=== PATIENT | female | born 1945 | race Caucasian/White ===

== ENCOUNTER 2021-03-29 12:55 | Emergency (ER) | payer MEDICARE, SELFPAY ==
[2021-03-29 13:01] VITALS: BP 137/73; PULSE 91; RESP 16; TEMP 36.5; O2SAT 99
--- NOTE | 2021-03-29 13:14 | ED.SKABFB ---
HPI - Skin/Abscess/Foreign Bdy General Chief complaint: Skin/Abscess/Foreign Body Stated complaint: rash Time Seen by Provider: 03/29/21 13:14 Source: patient and RN notes reviewed History of Present Illness HPI narrative: Patient is a 75-year-old female who presents the urgent care with complaints of a rash to the back and abdomen. Patient states that she noticed the itchiness and pain on Monday and then woke up today with the spread of the rash. Patient denies of any use of [id number] medication to the rash. Denies of any new detergents, creams. Patient states it is only on her right side. No other acute complaints. No acute distress noted. Patient aware of the plan of care. Some parts of this dictation were generated by voice recognition software and may contain typographical and/or grammatical inaccuracies. Related Data Home Medications Medication Instructions Recorded Confirmed anastrozole 1 mg tablet 1 mg PO DAILY 08/22/19 03/29/21 aspirin 81 mg chewable tablet 81 mg PO DAILY 08/22/19 03/29/21 cholecalciferol (vitamin D3) 50 2,000 unit PO DAILY 08/22/19 03/29/21 mcg (2,000 unit) tablet Allergies Allergy/AdvReac Type Severity Reaction Status Date / Time Penicillins Allergy Unknown Rash Verified 03/29/21 13:06 Review of Systems Review of Systems: Narrative: CONSTITUTIONAL: Denies fever, chills, or sweats. EYES: Denies visual changes, redness, or discharge. ENT: Denies rhinorrhea, congestion, sore throat, or otalgia. CARDIOVASCULAR: Denies chest pain, palpitations, or edema. RESPIRATORY: Denies cough or dyspnea. GASTROINTESTINAL: Denies abdominal pain, nausea, vomiting, or diarrhea. GENITOURINARY: Denies dysuria or hematuria. SKIN: Reports of an itchy painful rash to the right lower back spreading to the right abdomen MUSCULOSKELETAL: Denies back pain, joint pain, or myalgia. NEUROLOGIC: Denies headache, numbness, or weakness. All other systems reviewed are negative, except as documented in HPI. [facility] Past Medical History Medical History (Updated 03/29/21 @ 13:20 by JANNETTE Kelley) Chronic anxiety Surgical History Surgical History (Updated 08/22/19 @ 11:38 by Sarah Washburn CMA) History of breast biopsy (~07/2015) Family History Family History (Updated 01/31/18 @ 08:34 by DOCTOR UNKNOWN) Mother Family history of cardiovascular disease Diabetes mellitus Hypertension Family history of coronary artery disease Father Hypertension Family history of coronary artery disease Other Family history of malignant neoplasm of breast Social History Social History Smoking status: Never smoker Alcohol intake: current Comments At the time of my signature, I reviewed and agree with the nursing past medical, surgical, social, and family history. There is no relevant family history pertinent to the patient complaint. Exam Narrative: Exam Narrative: GENERAL: This is a well-nourished, well-developed patient, in no apparent distress. HEAD: normocephalic, atraumatic. EYES: PERRL. Sclera clear/white. Vision is grossly intact. EARS: External ears normal NOSE: External nose normal with no obvious nasal discharge, nares without redness, no rhinorrhea. THROAT: Mucous membranes moist NECK: Neck supple CARDIOVASCULAR: Regular rate and rhythm with murmur RESPIRATORY: Clear to auscultation. Breath sounds equal bilaterally. No wheezes, rales, or rhonchi. SKIN: Vesicular pruritic erythemic draining dermatitis to the right low back extending to the right abdomen and groin NEURO: awake, alert, and oriented to person, place and time. There were no obvious focal neurologic abnormalities. EXTREMITIES: No clubbing, cyanosis, or edema. Course Vital Signs Vital signs: Vital Signs Temperature 97.7 F 03/29/21 13:01 Pulse Rate 91 03/29/21 13:01 Respiratory Rate 16 03/29/21 13:01 Blood Pressure 137/73 03/29/21 13:01 Pulse Oximetry 99 03/29/21 13:01 Temperature 97.7 F
== END 2021-03-29 13:26 | disposition home or self-care (01) ==
PROVIDERS: Emergency Provider Nurse Practitioner Family; PCP Family Medicine
DX: B02.9 Zoster without complications (principal); F41.9 Anxiety disorder, unspecified
CPT/HCPCS: 99213; G0463

== ENCOUNTER 2021-04-12 10:02 | Emergency (ER) | payer MEDICARE, SELFPAY ==
[2021-04-12 10:09] VITALS: BP 138/74; PULSE 73; RESP 16; TEMP 36.5; O2SAT 99
--- NOTE | 2021-04-12 10:12 | ED.SKABFB ---
HPI - Skin/Abscess/Foreign Bdy General Chief complaint: Skin/Abscess/Foreign Body Stated complaint: pain from shingles Time Seen by Provider: 04/12/21 10:18 Source: patient and RN notes reviewed Mode of arrival: ambulatory Limitations: no limitations History of Present Illness HPI narrative: 76-year-old female presents the concern for shingles pain. Reports she was seen in this clinic 2 weeks ago and diagnosed with shingles and was given antiviral medicine. Reports she is almost finished with the antiviral medicine, shingles rash is improving, however she the pain is worsening. Reports she has been using an uotx-ist-acjxmin shingles cream, she was unable to afford the prescribed acyclovir cream. Reports she has been taking Tylenol with little pain relief. Reports the pain is 8/10. Reports pain is intermittent MD complaint: other (Shingles pain) Related Data Home Medications Medication Instructions Recorded Confirmed anastrozole 1 mg tablet 1 mg PO DAILY 08/22/19 04/12/21 aspirin 81 mg chewable tablet 81 mg PO DAILY 08/22/19 04/12/21 cholecalciferol (vitamin D3) 50 2,000 unit PO DAILY 08/22/19 04/12/21 mcg (2,000 unit) tablet ascorbic acid (vitamin C) [Centrum 1,000 mg PO DAILY 04/12/21 04/12/21 Singles-Vitamin C] biotin 5,000 mcg PO DAILY 04/12/21 04/12/21 magnesium oxide-Mg AA chelate 400 cap PO DAILY 04/12/21 04/12/21 [Magnesium (oxide/AA chelate)] multivit with min-folic acid 1 tablet PO DAILY 04/12/21 04/12/21 [Adult One Daily Multivitamin] vitamin B complex [B 1 tablet PO DAILY 04/12/21 Complex-Vitamin B12] Allergies Allergy/AdvReac Type Severity Reaction Status Date / Time Penicillins Allergy Unknown Rash Verified 04/12/21 10:15 Review of Systems Review of Systems: Narrative: CONSTITUTIONAL: Denies malaise, chills, sweats, or fever. EYES: Denies visual changes, redness, or discharge. CARDIOVASCULAR: Denies chest pain, palpitations, or edema. RESPIRATORY: Denies cough or dyspnea. GASTROINTESTINAL: Denies abdominal pain, nausea, vomiting, diarrhea SKIN: Reports shingles rash, pain shingles site MUSCULOSKELETAL: Denies myalgia. NEUROLOGIC: Denies headache. . All systems reviewed & are unremarkable except as noted in HPI and below PMFSH Past Medical History Medical History (Updated 04/12/21 @ 10:25 by Yu Asencio NP) Chronic anxiety Surgical History Surgical History (Updated 08/22/19 @ 11:38 by Sarah Washburn CMA) History of breast biopsy (~07/2015) Family History Family History (Updated 01/31/18 @ 08:34 by DOCTOR UNKNOWN) Mother Family history of cardiovascular disease Diabetes mellitus Hypertension Family history of coronary artery disease Father Hypertension Family history of coronary artery disease Other Family history of malignant neoplasm of breast Social History Social History Smoking status: Never smoker Alcohol intake: current Comments At time of signature, agree with nursing past medical, surgical, social and family history. There is no relevant family history pertinent to the presenting complaint Exam Narrative: Exam Narrative: GENERAL: Well-appearing, well-nourished, and in no acute distress. HEAD: Normocephalic, atraumatic. EYES: PERRLA, conjunctivae clear, and EOMI. ENT: Mucous membranes moist. Oropharynx without edema, erythema or lesions. NECK: Supple. No lymphadenopathy CHEST: Clear to auscultation. No respiratory distress. HEART: Regular rate and rhythm. SKIN: Warm, dry. Zosteriform rash with no raised lesions or blisters noted to the right lower back, hip, lower abdomen NEURO: Alert and oriented x3. PSYCH: Normal mood and affect Course Course Emergency Course: Patient is aware of diagnosis, understands and agrees to treatment plan. Anticipatory guidance given. Patient agrees to follow-up as directed and is aware of reasons to seek care at the emergency department. Portions of this record may have been created with voice
== END 2021-04-12 10:34 | disposition home or self-care (01) ==
PROVIDERS: Emergency Provider Nurse Practitioner; PCP Family Medicine
DX: B02.29 Other postherpetic nervous system involvement (principal); E78.00 Pure hypercholesterolemia, unspecified; I10 Essential (primary) hypertension; E05.90 Thyrotoxicosis, unspecified without thyrotoxic crisis or storm; Z90.10 Acquired absence of unspecified breast and nipple; Z85.9 Personal history of malignant neoplasm, unspecified; Z79.82 Long term (current) use of aspirin
CPT/HCPCS: 99213; G0463

== ENCOUNTER → 2021-04-23 09:16 | Outpatient (CLI) | payer MEDICARE, SELFPAY ==
--- NOTE | ~2021-04-23 | CT_ITS ---
EXAMINATION: CT abdomen pelvis wo con EXAM DATE: 04/23/2021 09:28 INDICATION: Abdominal bloating and mass. Shingles. TECHNIQUE: Spiral CT of the abdomen and pelvis was performed without contrast. Axial, coronal and s agittal images of the abdomen and pelvis were reviewed. The dose-length product (DLP) for this exami nation was 514.85 mGy-cm. The exposure was tailored according to patient size (auto mA exposure cont rol), and iterative reconstruction (ASIR) was used as additional dose reduction technique. There is no prior study for comparison. FINDINGS: The liver, spleen, adrenal glands and pancreas are unremarkable. Gallbladder is unremarkab le. No biliary obstruction. There is no nephrolithiasis or hydronephrosis. The uterus is not iden tified and has likely been surgically resected. The bladder is unremarkable. There is no retroperit oviedo or pelvic lymphadenopathy. There is mild scattered arteriosclerotic disease. The appendix is normal. The stomach and small bowel are unremarkable. There is expected amount of c olonic stool. No free intraperitoneal gas. The heart is normal in size. There are no pericardial or pleural effusions. Bibasilar subsegmental atelectasis. There are no osteoblastic or osteolytic lesions identified. IMPRESSION: 1. No acute intra-abdominal findings. 2. Bibasilar subsegmental atelectasis. Reviewed, dictated and finalized at location B.
== END ==
PROVIDERS: PCP Family Medicine; Visit Provider Family Medicine
DX: R14.0 Abdominal distension (gaseous) (principal); R91.8 Other nonspecific abnormal finding of lung field
CPT/HCPCS: 74176

== ENCOUNTER 2021-05-10 18:20 | Emergency (ER) | payer MEDICARE, SELFPAY ==
[2021-05-10] VITALS (9 sets, daily range): BP systolic 120–133; BP diastolic 51–62; PULSE 88–96; RESP 18–20; TEMP 36.7–36.9; O2SAT 98–100
--- NOTE | ~2021-05-10 | CT_ITS ---
EXAMINATION: CT abdomen pelvis w con INDICATION: Left lower quadrant pain, hematochezia TECHNIQUE: Computed tomographic images of the abdomen and pelvis were obtained after the administrati on of 100 cc of Omnipaque 350 intravenous contrast. The dose-length product (DLP) was 432.00 mGy-cm. Automated exposure control and iterative reconstruction technique were employed. COMPARISON: 04/23/2021 FINDINGS: Minimal dependent atelectasis is present in the lung bases. The heart size is normal. The l iver, spleen, pancreas, gallbladder, and adrenal glands are normal. Cysts of the kidneys measure up t o 5 mm on the right. There is calcified atherosclerosis of the aorta and many of the other arteries. There is circumferential wall thickening of the descending and proximal sigmoid colon. There is edema tous stranding of the associated pericolic fat. A moderate volume of pelvic ascites is present. The a ppendix is normal. There is severe lumbar spondylosis. No pathologically enlarged abdominal or pelvic lymph nodes are identified. There is no free intraperitoneal gas or evidence of bowel obstruction. IMPRESSION: 1. Wall thickening of the descending and proximal sigmoid colon with surrounding inflammatory change and free fluid in the pelvis, consistent with colitis. Reviewed, dictated and finalized at location A. IMPRESSION: 1. Wall thickening of the descending and proximal sigmoid colon with surroundin g inflammatory change and free fluid in the pelvis, consistent with colitis.
[2021-05-10 19:55] LABS: Basophils Absolute Auto 0.1 K/mm3 (0.0-0.1); Basophils Percent Auto 0.4 % (0.2-1.2); Eosinophils Absolute Auto 0.2 K/mm3 (0-0.3); Hemoglobin 13.1 g/dL (12.0-15.0); Immature Granulocyte Absolute 0.08 K/mm3 (0.00-0.031); Immature Granulocyte Percent A 0.4 % (0-0.5); Lymphocytes Absolute Auto 2.15 K/mm3 (0.9-3.2); Mean Corpuscular HGB Conc 33.6 g/dl (32-36); Mean Corpuscular Hemoglobin 30.3 pg (26-34); Mean Corpuscular Volume 90.1 fl (80-100); Mean Platelet Volume 9.7 fl (7.4-10.4); Monocytes Absolute Auto 1.4 K/mm3 (0.1-0.6); Monocytes Percent Auto 7.6 % (2.6-8.5); Neutrophils Absolute Auto 14.1 K/mm3 (1.3-6.7); Neutrophils Percent Auto 78.6 % (45.5-73.1); Platelet Count Result 202 k/mm3 (150-375); Red Blood Count 4.33 M/mm3 (4.2-5.4); Red Cell Distribution Width 13.7 % (11.5-14.5); White Blood Count 17.9 K/mm3 (4.5-10.0)
[2021-05-10 20:05] LABS: Alanine Aminotransferase 31 U/L (4-35); Albumin Level 4.5 g/dL (3.5-5.1); Alkaline Phosphatase 77 U/L (38-126); Anion Gap 7 mmol/L (8-16); Aspartate Amino Transferase 33 U/L (14-36); Bilirubin,Total 1.4 mg/dL (0.2-1.3); Blood Urea Nitrogen 14 mg/dL (7-17); Calcium 9.5 mg/dL (8.4-10.2); Carbon Dioxide 29 mmol/L (22-30); Chloride 101 mmol/L (98-107); Estimated CRCL calculation 53 ml/min; Estimated Glomerular Filt Rate > 60; Glucose 116 mg/dL (65-110); Lipase 91 U/L (23-300); Sodium 137 mmol/L (137-145)
[2021-05-10 20:18] LABS: Add Urine Microscopic? YES; Appearance Urine Clear (Clear); Bacteria Urine Trace /hpf; Bilirubin Urine Negative (Negative); Blood Urine Negative (Negative); Color Urine Straw (Yellow); Glucose Urine UA Negative (Negative); Ketones Urine Negative (Negative); Leukocyte Esterase Ur 2+ LEU/UL (Negative); Mucus Urine Rare /lpf; Nitrate Urine Negative (Negative); Protein Urine Negative (Negative); RBC Urine 0-2 /hpf (0-2); Specific Grav Ur 1.005 (1.001-1.035); Squamous Epithelial Cell Urine Occasional /hpf (Few); Urobilinogen Urine Negative mg/dL (<2.0); WBC Urine 16-20 /hpf
[2021-05-10] MEDS: MORPHINE SULFATE (*CRX) 4 MG/ML INJ IV PUSH (22:26)
[2021-05-10] MEDS: SODIUM CHLORIDE 0.9% IV 1,000 ML 999 ML IV CONT (22:26)
--- NOTE | 2021-05-10 22:50 | ED.GENADULT ---
HPI - General Adult General Chief complaint: Abdominal Pain Stated complaint: left side abd pain Time Seen by Provider: 05/10/21 21:33 History of Present Illness HPI narrative: Patient is a 76-year-old female who presents ER with abdominal pain. Recently diagnosed with shingles on the right side of her abdominal wall. However over the last couple days she has developed left-sided abdominal pain that is associated with loose stools and 2 episodes of small amount of blood within the stool. No fevers or chills or sweats. No chest pain or chest pressure. Denies history of diverticulitis. Related Data Home Medications Medication Instructions Recorded Confirmed anastrozole 1 mg tablet 1 mg PO DAILY 08/22/19 04/20/21 aspirin 81 mg chewable tablet 81 mg PO DAILY 08/22/19 04/20/21 cholecalciferol (vitamin D3) 50 2,000 unit PO DAILY 08/22/19 04/20/21 mcg (2,000 unit) tablet ascorbic acid (vitamin C) [Centrum 1,000 mg PO DAILY 04/12/21 04/20/21 Singles-Vitamin C] biotin 5,000 mcg PO DAILY 04/12/21 04/20/21 magnesium oxide-Mg AA chelate 400 cap PO DAILY 04/12/21 04/20/21 [Magnesium (oxide/AA chelate)] multivit with min-folic acid 1 tablet PO DAILY 04/12/21 04/20/21 [Adult One Daily Multivitamin] vitamin B complex [B 1 tablet PO DAILY 04/12/21 04/20/21 Complex-Vitamin B12] Allergies Allergy/AdvReac Type Severity Reaction Status Date / Time Penicillins Allergy Unknown Rash Verified 05/10/21 21:17 Review of Systems Review of Systems: All systems reviewed & are unremarkable except as noted in HPI and below Constitutional: Constitutional: Denies chills, Denies fever(s) and Denies weakness ENT: Denies nasal congestion and Denies sore throat Respiratory: Respiratory: Denies cough and Denies dyspnea Gastrointestinal: Gastrointestinal: Reports abdominal pain, Reports diarrhea, Denies nausea and Denies vomiting Genitourinary: Genitourinary: Denies nocturia, Denies dysuria and Denies flank pain [facility] Past Medical History Medical History (Updated 05/11/21 @ 00:01 by Torres Betancourt MD) Chronic anxiety Essential hypertension Hypothyroidism (acquired) Mixed hyperlipidemia Nonrheumatic aortic (valve) stenosis echo 1.2020 moderate/1.14cm2. slightly worse Surgical History Surgical History (Updated 05/10/21 @ 22:54 by Torres Betancourt MD) History of breast biopsy (~07/2015) History of colonoscopy Family History Family History Mother Family history of cardiovascular disease Diabetes mellitus Hypertension Family history of coronary artery disease Father Hypertension Family history of coronary artery disease Other Family history of malignant neoplasm of breast Social History Social History Smoking status: Never smoker Alcohol intake: current Gender identity (if verbalized by the patient): Female Exam Narrative: Exam Narrative: GENERAL: Well-appearing, well-nourished, and in no acute distress. HEAD: Normocephalic, atraumatic. CHEST: Clear to auscultation. No respiratory distress. HEART: Regular rate and rhythm. Normal peripheral pulses. ABDOMEN: Soft, tender to palpation left lower quadrant and left mid abdomen with guarding, nondistended. EXTREMITIES: Normal range of motion. No edema. SKIN: Warm, dry, no rash. NEURO: Alert and oriented x3. PSYCH: Normal mood and affect. Course Course Emergency Course: Patient informed results. Discharge home with Cipro/Flagyl. First dose here. Vital Signs Vital signs: Vital Signs Temperature 98.4 F 05/10/21 19:34 Pulse Rate 96 05/10/21 19:34 Respiratory Rate 20 05/10/21 19:34 Blood Pressure 121/51 L 05/10/21 19:34 Pulse Oximetry 99 05/10/21 19:34 Temperature 98.0 F 05/10/21 21:13 Pulse Rate 88 05/10/21 21:13 Respiratory Rate 18 05/10/21 21:13 Blood Pressure 120/56 L 05/10/21 22:01 Pulse O
--- NOTE | 2021-05-10 23:09 | PC.NURSE ---
report to reg whitley
[2021-05-11 00:06] VITALS: BP 115/54; PULSE 96; RESP 17; O2SAT 100
[2021-05-11] MEDS: CIPROFLOXACIN 500 MG TAB PO (00:07)
[2021-05-11] MEDS: metroNIDAZOLE 250 MG TABLET 500 MG PO (00:07)
== END 2021-05-11 04:53 | disposition home or self-care (01) ==
PROVIDERS: Emergency Provider Emergency Medicine; PCP Family Medicine
DX: K52.9 Noninfective gastroenteritis and colitis, unspecified (principal); E03.9 Hypothyroidism, unspecified; I10 Essential (primary) hypertension; E78.2 Mixed hyperlipidemia; I35.0 Nonrheumatic aortic (valve) stenosis; Z79.82 Long term (current) use of aspirin
CPT/HCPCS: 36415; 74177; 80053; 81001; 83690; 85025; 87086; 96361; 96374; 99284; A9270; J2270; J7030; Q9967

== ENCOUNTER 2021-09-06 10:04 | Emergency (ER) | payer MEDICARE, SELFPAY ==
[2021-09-06 10:31] VITALS: BP 123/59; PULSE 89; RESP 16; TEMP 36.6; O2SAT 100
--- NOTE | 2021-09-06 10:41 | ED.URI ---
HPI - URI/Sore Throat General Chief Complaint: Upper Respiratory Infection Stated Complaint: Cough Time Seen by Provider: 09/06/21 10:41 Source: patient Mode of arrival: ambulatory Limitations: no limitations History of Present Illness HPI Narrative: Angelina Jefferson is a 76 yo female with a PMH of high cholesterol, hypothyroid, HTN, [facility]. She states that has been productive cough and is keeping her awake at night except last night she used Vicks on her feet and states that she is able to sleep through the night. No fever no nausea vomiting diarrhea Related Data Home Medications Medication Instructions Recorded Confirmed anastrozole 1 mg tablet 1 mg PO DAILY 08/22/19 05/20/21 aspirin 81 mg chewable tablet 81 mg PO DAILY 08/22/19 05/20/21 cholecalciferol (vitamin D3) 50 2,000 unit PO DAILY 08/22/19 05/20/21 mcg (2,000 unit) tablet ascorbic acid (vitamin C) [Centrum 1,000 mg PO DAILY 04/12/21 05/20/21 Singles-Vitamin C] biotin 5,000 mcg PO DAILY 04/12/21 05/20/21 magnesium oxide-Mg AA chelate 400 cap PO DAILY 04/12/21 05/20/21 [Magnesium (oxide/AA chelate)] multivit with min-folic acid 1 tablet PO DAILY 04/12/21 05/20/21 [Adult One Daily Multivitamin] vitamin B complex [B 1 tablet PO DAILY 04/12/21 05/20/21 Complex-Vitamin B12] Allergies Allergy/AdvReac Type Severity Reaction Status Date / Time Penicillins Allergy Unknown Rash Verified 05/20/21 09:22 Review of Systems Review of Systems: CONSTITUTIONAL: Denies fever, chills, sweats. EYES: Denies visual changes, redness, discharge. ENT: Has rhinorrhea, has congestion, sore throat, otalgia. CARDIOVASCULAR: Denies chest pain, palpitations, edema. RESPIRATORY: Denies dyspnea, wheezing, has cough GASTROINTESTINAL: Denies abdominal pain, nausea, vomiting, diarrhea. GENITOURINARY: Denies dysuria, hematuria, abnormal discharge SKIN: Denies rash or itching. NEUROLOGIC: Denies numbness, or focal weakness. PSYCHIATRIC: Denies anxiety or depression. [facility] Past Medical History Medical History Chronic anxiety Essential hypertension Hypothyroidism (acquired) Mixed hyperlipidemia Nonrheumatic aortic (valve) stenosis echo 1.2020 moderate/1.14cm2. slightly worse Surgical History Surgical History History of breast biopsy (~07/2015) History of colonoscopy Family History Family History Mother Family history of cardiovascular disease Diabetes mellitus Hypertension Family history of coronary artery disease Father Hypertension Family history of coronary artery disease Other Family history of malignant neoplasm of breast Social History Social History Alcohol intake: current Gender identity (if verbalized by the patient): Female Comments At time of signature, I agree with nursing past medical, surgical, social and family history. There is no relevant family history pertinent to the presenting complaint. Exam Narrative: GENERAL: This is a well-nourished, well-developed patient, in mild distress. HEAD: normocephalic, atraumatic. EYES:. Sclera clear/white. Vision is grossly intact. EARS: External ears normal, auditory canals clear and without drainage, TMs normal without perforation. Hearing grossly intact. NOSE: External nose normal with nasal discharge, nares with redness, has rhinorrhea. THROAT: Mucous membranes moist, posterior pharynx mild erythema with clear postnasal drip NECK: Neck supple, non-tender CARDIOVASCULAR: Regular rate and rhythm with a 2 out of 6 murmurs, gallops, or rubs. RESPIRATORY: Clear to auscultation. Breath sounds equal bilaterally. No wheezes, rales, or rhonchi. GASTROINTESTINAL: Abdomen soft, SKIN: warm, intact with no suspicious lesions or rash, good texture and turgor.
== END 2021-09-06 10:59 | disposition home or self-care (01) ==
PROVIDERS: Emergency Provider Nurse Practitioner; PCP Family Medicine
DX: J06.9 Acute upper respiratory infection, unspecified (principal); I10 Essential (primary) hypertension; E03.9 Hypothyroidism, unspecified; E78.2 Mixed hyperlipidemia; I35.0 Nonrheumatic aortic (valve) stenosis
CPT/HCPCS: 99213; G0463

== ENCOUNTER → 2021-12-15 10:16 | Outpatient (CLI) | payer MEDICARE, SELFPAY ==
--- NOTE | ~2021-12-15 | XR_ITS ---
XR shoulder RT min 2V DATE: 12/15/2021 10:44 INDICATION: Right shoulder pain TECHNIQUE: 4 views COMPARISON: None FINDINGS: There is diffuse osteopenia. Diffuse idiopathic skeletal hyperostosis of the thoracic spine. Mild thoracic dextroscoliosis. There is mild degenerative change at the right acromioclavicular joint. There is to moderate osteoart hritis of the right glenohumeral joint. No fracture or dislocation, periosteal reaction or bone destruction or abnormal soft tissue calcifica tion of the right shoulder. 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 ASIN SEWER
== END ==
PROVIDERS: PCP Family Medicine; Visit Provider Family Medicine
DX: M85.811 Other specified disorders of bone density and structure, right shoulder (principal); M19.011 Primary osteoarthritis, right shoulder
CPT/HCPCS: 73030

== ENCOUNTER 2022-01-26 09:00 | Outpatient (RCR) | payer MEDICARE, SELFPAY ==
--- NOTE | 2022-01-05 10:03 | PTOPEVAL ---
PHYSICAL THERAPY EVALUATION AND PLAN OF CARE 01-05-22 Thank you for referring Angelina Jefferson to [facility]. for the diagnosis of neck and R shoulder pain. She is scheduled to be seen for therapy? 2 x/week for 3 weeks. Please review, sign, date and return this plan of care EUNICE. I agree with and certify that the following plan of care is medically necessary. Referring Physician Date Attending Provider: Karlee Yu MD Past Medical History Source of Past Medical History Recalled from Previous Visit, Confirmed with Patient/Family Neurological History Hx Neurological Disorders No Significant History Cardiovascular History Hx Hypercholesterolemia Yes: meds Hx Hypertension Yes: meds Hx Other Cardiac Disorders Yes: monitoring cardiac valve- to have testing next month Respiratory History Hx Asthma Yes: with stairs and burning outside-have breathing problems Gastrointestinal History Hx Gastrointestinal Disorders No Significant History Genitourinary History Hx Genitourinary Disorders No Significant History Musculoskeletal History Hx Back Pain Yes: intermittent issues with back; Hx Orthopedic Surgery Yes: cervical fusion 2010- s/p fall ; Endocrine History Hx Hyperthyroidism Yes: meds HEENT History Hx Other HEENT Disorders Yes: wear glasses Integumentary History Hx Shingles Yes: 2020 Reproductive History Hx Post Menopausal Yes Other History Hx Cancer Yes: 2019 R breast cancer- mastectomy with radiation and take pill-anastrozole Hx Chemotherapy Yes Diagnosis neck and R shoulder pain Onset about one year Subjective Information over the past year, have had Query Text:As Reported By Patient/ pain in R shoulder, increased Family after more cleaning and house work; had a massage 2 weeks ago, pain was less after it; also has low back pain, increased after 12 hour car trip with only 3 stops there and with return trip; Diagnostic Tests X-Rays For This Problem Yes:R mild AC joint&mod GH OA;thoracic dextroscoliosis Previous Treatments Previous Treatments For This Problem no treatment for neck/shoulder Prior Level of Function Activity Level (Last 3 Months) 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
--- NOTE | 2022-01-18 14:58 | PCPTNOTE ---
Patient called & cancelled scheduled appointment this date, per patient's request.
--- NOTE | 2022-01-18 15:04 | PCPTNOTE ---
Patient cancel appointment 01/19 per request.
--- NOTE | 2022-01-24 08:30 | PCPTNOTE ---
Patient called & cancelled scheduled appointment this date due to being sick.
--- NOTE | 2022-01-26 09:50 | PTOPEVAL ---
PHYSICAL THERAPY DISCHARGE REPORT 01-26-22 Refer to the clinical summary below, for her status today, compared to the initial evaluation. The goals were partially achieved; she will be discharged from PT at this time. Thank you for referring Angelina Jefferson to [facility], for the diagnosis of R shoulder pain/OA. Please review, sign, date and return this Discharge report EUNICE. I agree with and certify that the following plan of care is medically necessary. Referring Physician Date Attending Provider: Karlee Yu MD Subjective Information Angelina reports: shoulder not Query Text:As Reported By Patient/ really bothering her any more; Family is doing her exercises but sometimes hurt her back; at home is able to everything with her R arm, when it gets tired, she uses her L arm; is back to her normal activity level, but back is hurting now ; is ready for discharge from PT Pain Assessment Pain Scale Pain Scale Used Numeric (1 - 10) Self Report Pain Assessment Right Shoulder(s) Reported Pain Level 0 Radicular Pain Location R lateral humerus sore Pain Frequency Intermittent Lowest Pain Intensity 0 Greatest Pain Intensity 2 Pain Aggravating Factors Exercise/Activity Other Pain Aggravating Factors lie on R arm with sleeping, wake up and reposition Pain Score 0: Self Report Additional Pain Score Comments Oswestry self assessment functional activity limitation score of 6 % limitation; discussed and reinforced with pt pain management: activity rest/balance, decrease repetitive use of R arm, alternate tasks with L UE; use of heat/ice PRN, watch posture with activity and exercises; pt voiced understanding of education Interventions Used Interventions Used By Clinicians Education,Exercise Pain Relief Interventions Used By Inactivity/Rest,Medication Patient Other Alleviating Interventions take tylenol in afternoon PRN with activity; CBD oil Gross Upper Extremity Range of Motion standing R shoulder flexion Comments 130', abduction 130'; IR- reach behind back, thumb to bra strap and ER reach pal
== END 2022-01-26 16:11 | disposition home or self-care (01) ==
LOC: ANHPT 09:00
PROVIDERS: PCP Family Medicine; Visit Provider Family Medicine
DX: M54.2 Cervicalgia (principal); M25.511 Pain in right shoulder; M12.811 Other specific arthropathies, not elsewhere classified, right shoulder
CPT/HCPCS: 97110; 97112; 97140; 97161; 97530

== ENCOUNTER 2022-06-24 20:30 | Emergency (ER) | payer MEDICARE, SELFPAY ==
--- NOTE | ~2022-06-24 | XR_ITS ---
EXAMINATION: XR chest 2V DATE: 06/24/2022 21:41 INDICATION: Left lower limb swelling. Chronic disease post valve replacement. TECHNIQUE: PA and lateral views of the chest were obtained. COMPARISON: Chest radiograph dated 03/07/2005 FINDINGS: Couple small calcified nodules the left apex consistent with old granulomatous disease. Subtle opacit ies at the anterior left lung base. More linear opacity lateral right midlung zone and favor atelecta sis. No pulmonary edema, pleural effusion or pneumothorax. Heart size is normal. Aortic valve repair. There are bridging osteophytes at multiple levels in the spine, consistent with diffuse idiopathic s keletal hyperostosis (DISH). Mild to moderate thoracic and moderate to severe upper lumbar spondylosi s. IMPRESSION: 1. Opacities at the anterior left lung base and favor small paracardial fat pad and lingular atelecta sis over pneumonia. Reviewed, dictated and finalized at location A. IMPRESSION: 1. Opacities at the anterior left lung base and favor small paracardial fat pad and lingular atelectasis over pneumonia.
[2022-06-24 20:46] VITALS: BP 145/63; PULSE 81; RESP 18; TEMP 36.9; O2SAT 98
--- NOTE | 2022-06-24 20:50 | ECG_ITS ---
Measurements Intervals [place] Rate: 77 P: 56 MS: 159 QRS: -27 QRSD: 97 T: 44 QT: 379 QTc: 429 Interpretive Statements SINUS RHYTHM POSSIBLE LEFT ATRIAL ENLARGEMENT INCOMPLETE RIGHT BUNDLE BRANCH BLOCK LEFT VENTRICULAR HYPERTROPHY CONSIDER ANTERIOR INFARCT, AGE INDETERMINATE ABNORMAL ECG NO PREVIOUS ECG AVAILABLE FOR COMPARISON Electronically Signed On 06-25-2022 7:02:03 CDT by Austin Watson D.O.
[2022-06-24 21:08] LABS: Basophils Absolute Auto 0.1 K/mm3 (0.0-0.1); Basophils Percent Auto 0.8 % (0.2-1.2); Eosinophils Absolute Auto 0.2 K/mm3 (0-0.3); Eosinophils Percent Auto 2.3 % (0-4.4); Hematocrit 40.9 % (37.0-47.0); Hemoglobin 13.2 g/dL (12.0-15.0); Immature Granulocyte Absolute 0.02 K/mm3 (0.00-0.031); Immature Granulocyte Percent A 0.3 % (0-0.5); Lymphocytes Absolute Auto 1.86 K/mm3 (0.9-3.2); Lymphocytes Percent Auto 23.5 % (18.3-44.2); Mean Corpuscular HGB Conc 32.3 g/dl (32-36); Mean Corpuscular Hemoglobin 28.7 pg (26-34); Mean Corpuscular Volume 88.9 fl (80-100); Mean Platelet Volume 9.8 fl (7.4-10.4); Monocytes Absolute Auto 0.6 K/mm3 (0.1-0.6); Monocytes Percent Auto 7.5 % (2.6-8.5); Neutrophils Absolute Auto 5.2 K/mm3 (1.3-6.7); Neutrophils Percent Auto 65.6 % (45.5-73.1); Platelet Count Result 201 k/mm3 (150-375); Red Cell Distribution Width 13.8 % (11.5-14.5); White Blood Count 7.9 K/mm3 (4.5-10.0)
[2022-06-24 21:18] LABS: Alanine Aminotransferase 28 U/L (6-35); Albumin Level 4.8 g/dL (3.5-5.1); Alkaline Phosphatase 102 U/L (38-126); Anion Gap 11 mmol/L (8-16); Aspartate Amino Transferase 36 U/L (14-36); Bilirubin,Total 0.7 mg/dL (0.2-1.3); Blood Urea Nitrogen 15 mg/dL (7-17); Calcium 9.9 mg/dL (8.4-10.2); Carbon Dioxide 28 mmol/L (22-30); Chloride 102 mmol/L (98-107); Estimated CRCL calculation 45 ml/min; Estimated Glomerular Filt Rate > 60; Glucose 127 mg/dL (65-110); Lipase 183 U/L (23-300); Potassium 4.2 mmol/L (3.4-5.0); Sodium 141 mmol/L (137-145)
[2022-06-24 21:19] LABS: Partial Thromboplastin Time 43.4 SECONDS (22.3-36.8)
[2022-06-24 21:23] LABS: D Dimer 0.54 ug/mL (<0.48)
[2022-06-24 21:29] LABS: Troponin I < 0.012 ng/mL (0.000-0.034)
[2022-06-24 22:23] LABS: NT Pro B Type Natriuretic Pept 105 pg/mL (5-100)
--- NOTE | 2022-06-24 22:54 | ED.LOWEXIN ---
HPI - Extremity Injury (Lower) General Chief Complaint: Extremity Injury, Lower Stated Complaint: left foot red and swelling Time Seen by Provider: 06/24/22 21:40 Source: patient Mode of arrival: ambulatory Limitations: no limitations History of Present Illness HPI Narrative: Patient is a 77 y/o female who presents to the ED with c/o swelling and redness to left foot. Patient reports having intermittent pain, swelling, and redness to her left foot for the past couple months. She states the swelling and redness seems to be worse at certain times. She has seen her ballistics laboratory gunsmith, PCP, and chiropractor for this and states everyone has said it is nothing to worry about. Over the last 4 days, she reports having worsening swelling, pain, redness over the last couple days. She complains of pain to her distal first toe. Patient denies any wounds, fevers, drainage. Patient is on Plavix status post TAVR in early April. She denies any issues since her surgery. Denies any current chest pain or shortness of breath. She has been exercising regularly. Related Data Home Medications Medication Instructions Recorded Confirmed anastrozole 1 mg tablet 1 mg PO DAILY 08/22/19 05/17/22 aspirin 81 mg chewable tablet 81 mg PO DAILY 08/22/19 05/17/22 (Blanca Chewable Low Dose Aspirin) cholecalciferol (vitamin D3) 50 2,000 unit PO DAILY 08/22/19 05/17/22 mcg (2,000 unit) tablet ascorbic acid (vitamin C) 500 mg 1,000 mg PO DAILY 04/12/21 05/03/22 tablet biotin 5,000 mcg disintegrating 5,000 mcg PO DAILY 04/12/21 05/17/22 tablet magnesium oxide-magnesium amino 400 cap PO DAILY 04/12/21 05/17/22 acid chelate 300 mg capsule (Magnesium (oxide/AA chelate)) multivitamin with minerals-folic 1 tablet PO DAILY 04/12/21 05/17/22 acid 0.4 mg tablet (Adult One Daily Multivitamin) vitamin B complex (B 1 tablet PO DAILY 04/12/21 05/03/22 Complex-Vitamin B12 tablet) clopidogrel 75 mg tablet 75 mg PO DAILY 05/03/22 05/17/22 docusate sodium 100 mg capsule 100 mg PO BID 05/03/22 05/17/22 fluticasone propionate 50 1 spray intranasal DAILY PRN Sleep 05/03/22 05/17/22 mcg/actuation nasal spray,suspension omega 3-dha 108 mg-epa 162 mg-fish cap PO 05/03/22 05/03/22 oil 1,000 mg capsule Allergies Allergy/AdvReac Type Severity Reaction Status Date / Time Penicillins Allergy Unknown Rash Verified 06/24/22 21:32 Review of Systems Review of Systems: CONSTITUTIONAL: Denies fever, chills, or sweats. CARDIOVASCULAR: Denies chest pain. RESPIRATORY: Denies dyspnea. GASTROINTESTINAL: Denies abdominal pain, nausea, vomiting, or diarrhea. SKIN: Reports swelling and redness to L foot. MUSCULOSKELETAL: Reports pain to L 1st toe. NEUROLOGIC: Denies tingling, numbness, or weakness. All systems reviewed & are unremarkable except as noted in HPI and below PMFSH Past Medical History Medical History Chronic anxiety Essential hypertension Hypothyroidism (acquired) Mixed hyperlipidemia Nonrheumatic aortic (valve) stenosis echo 1.2020 moderate/1.14cm2. slightly worse Surgical History Surgical History History of breast biopsy (~07/2015) History of colonoscopy S/P TAVR (transcatheter aortic valve replacement) Family History Family History Mother Family history of cardiovascular disease Diabetes mellitus Hypertension Family history of coronary artery disease Father Hypertension Family history of coronary artery disease Other Family history of malignant neoplasm of breast Social History Social History Smoking status: Never smoker Alcohol intake: current Gender identity (if verbalized by the patient): Female Exam Narrative: GENERAL: Well appearing, well-nourished, non-toxic, in no acute dis
[2022-06-24 23:41] VITALS: PULSE 73; RESP 21; O2SAT 99
[2022-06-24 23:43] VITALS: BP 140/71; PULSE 71; RESP 23; O2SAT 100
[2022-06-24 23:45] VITALS: PULSE 70; RESP 22; O2SAT 99
[2022-06-24 23:46] VITALS: BP 141/63; PULSE 82; RESP 17; O2SAT 99
[2022-06-24] MEDS: CEPHALEXIN 500 MG CAPSULE PO (23:56)
== END 2022-06-25 00:09 | disposition home or self-care (01) ==
PROVIDERS: Emergency Medicine; Emergency Provider Emergency Medicine; PCP Family Medicine
DX: L03.116 Cellulitis of left lower limb (principal); I10 Essential (primary) hypertension; E03.9 Hypothyroidism, unspecified; E78.2 Mixed hyperlipidemia; I35.0 Nonrheumatic aortic (valve) stenosis; Z95.2 Presence of prosthetic heart valve; Z79.02 Long term (current) use of antithrombotics/antiplatelets; Z79.82 Long term (current) use of aspirin; I45.10 Unspecified right bundle-branch block; R94.31 Abnormal electrocardiogram [ECG] [EKG]
CPT/HCPCS: 36415; 71046; 80053; 83690; 83880; 84484; 85025; 85380; 85610; 85730; 93005; 99284; A9270

== ENCOUNTER 2022-06-25 07:24 | Outpatient (CLI) | payer MEDICARE, SELFPAY ==
--- NOTE | ~2022-06-25 | US_ITS ---
US venous doppler [facility] DATE: 06/25/2022 07:58 INDICATION: Left leg pain TECHNIQUE: Real-time and color flow imaging and Doppler analysis of the veins of the left lower extre mity COMPARISON: None FINDINGS: Left greater saphenous vein is patent. There is spontaneous and phasic flow and normal augm entation and color flow signal and normal compression of the deep veins of the left leg. IMPRESSION: No evidence of deep venous thrombosis of left lower extremity Reviewed, dictated and finalized at Location A. Reviewed, dictated and finalized at location A.
== END 2022-06-25 07:25 | disposition home or self-care (01) ==
PROVIDERS: PCP Family Medicine; Visit Provider Physician Assistant
DX: M79.605 Pain in left leg (principal)
CPT/HCPCS: 93971

== ENCOUNTER → 2022-07-07 12:30 | Outpatient (CLI) | payer MEDICARE, SELFPAY ==
--- NOTE | ~2022-07-07 | XR_ITS ---
XR foot LT min 3V DATE: 07/07/2022 12:44 INDICATION: Swelling of left foot for 3 months. History of cellulitis. TECHNIQUE: 4 views COMPARISON: None FINDINGS: Very prominent posterior and mild plantar calcaneal enthesopathy. There is mild osteophytic change at the first metatarsophalangeal joint. There is fusion at the proximal interphalangeal joint of the fourth digit. Mild osteoarthritic change at the interphalangeal joints. No fracture, dislocation, periosteal reaction or bone destruction is detected. IMPRESSION: Mild polyarticular osteoarthritis Very prominent posterior and mild plantar calcaneal enthesopathy Reviewed, dictated and finalized at location B.
== END ==
PROVIDERS: PCP Family Medicine; Visit Provider Family Medicine
DX: M79.89 Other specified soft tissue disorders (principal); M19.072 Primary osteoarthritis, left ankle and foot; M77.32 Calcaneal spur, left foot
CPT/HCPCS: 73630

== ENCOUNTER 2022-08-22 16:30 | Outpatient (RCR) | payer MEDICARE, SELFPAY | END 2022-08-22 18:40 | disposition home or self-care (01) | LOC: ANHCPREHAB 16:30 | PROVIDERS: PCP Family Medicine; Visit Provider Internal Medicine Cardiovascular Disease | DX: Z95.2 Presence of prosthetic heart valve (principal) | CPT/HCPCS: 93798 ==

== ENCOUNTER 2023-03-15 13:20 | Outpatient (CLI) | payer MEDICARE, SELFPAY ==
--- NOTE | ~2023-03-15 | XR_ITS ---
Lumbosacral Spine: AP and lateral views Clinical History: Pain Findings: The normal lordotic curve is maintained. No fracture identified. There is 7 mm retrolisthes is of L1 over L2. There is 4 mm retrolisthesis of L2 over L3. There is severe degenerative disc narro wing throughout the lumbar spine. There is advanced facet arthropathy from L3 through S1. The sacroil iac joints are normally outlined. Impression: Advanced degenerative spondylosis, as above. 7 mm retrolisthesis of L1 over L2. 4 mm retrolisthesis of L2 over L3. Reviewed, dictated and finalized at location M. Impression: Advanced degenerative spondylosis, as above. 7 mm retrolisthesis of L1 over L2. 4 mm retrolisthesis of L2 over L3.
== END 2023-03-15 13:21 | disposition home or self-care (01) ==
PROVIDERS: PCP Family Medicine; Visit Provider Physician Assistant
DX: M54.50 Low back pain, unspecified (principal); M47.896 Other spondylosis, lumbar region
CPT/HCPCS: 72100

== ENCOUNTER 2023-05-12 12:29 | Outpatient (CLI) | payer MEDICARE, SELFPAY ==
[2023-05-16 22:04] LABS: Ionized Calcium 5.1 mg/dL (4.7-5.5)
== END 2023-05-12 12:30 | disposition home or self-care (01) ==
LOC: ANHGOSHLAB 12:31
PROVIDERS: PCP Family Medicine; Visit Provider Physician Assistant
DX: E83.52 Hypercalcemia (principal)
CPT/HCPCS: 36415; 82330

== ENCOUNTER → 2023-06-06 12:18 | Outpatient (CLI) | payer MEDICARE, SELFPAY ==
--- NOTE | ~2023-06-06 | XR_ITS ---
XR knee LT 3V 06/06/2023 12:35 INDICATION: Left knee pain PROCEDURE: 3 views left knee COMPARISON: No prior studies for comparison. FINDINGS: Fracture, dislocation or subluxation is not identified. There is an ossific density posteri or medial to the knee, possibly vascular. No significant joint effusion. The soft tissues appear with in normal limits. No foreign bodies are identified. IMPRESSION: 1: NO ACUTE BONE OR JOINT ABNORMALITY IDENTIFIED. Reviewed, dictated and finalized at location L.
== END ==
PROVIDERS: PCP Family Medicine; Visit Provider Nurse Practitioner Family
DX: M25.562 Pain in left knee (principal)
CPT/HCPCS: 73562

== ENCOUNTER → 2023-09-12 10:09 | Outpatient (CLI) | payer MEDICARE, SELFPAY ==
--- NOTE | ~2023-09-12 | DEXA_ITS ---
Bone Density Report Name: MARGY PAL Age: 78 Sex: Female Ethnicity: White Date of : 1945 Indication: postmenopausal; screening for osteoporosis; height loss; prior fracture; cancer; Referring Provider: Gregory Piper Study: Bone densitometry was performed. Exam Date: September 12, 2023 Accession number: [id number] Bone Density: Region BMD T-score Z-score Classification AP Spine (L1, L3, L4) 1.397 3.1 5.8 Normal Femoral Neck (Left) 0.785 -0.6 1.7 Normal Total Hip (Left) 0.928 -0.1 2.0 Normal Femoral Neck (Right) 0.695 -1.4 0.9 Osteopenia Total Hip (Right) 0.892 -0.4 1.7 Normal Total Hip Mean 0.910 -0.3 1.9 Normal World Health Organization criteria for BMD impression classify patients as: Normal (T-score at or above -1.0), Osteopenia (T-score between -1.0 and -2.5), or Osteoporosis (T-score at or below -2.5). 10-year Fracture Risk: FRAX not reported because: Prior hip or vertebral fracture Clinical Information Provided by Patient: Have had a previous hip or vertebral fracture Has had a low trauma fracture Has used the following medications: Vitamin D, Calcium Has the following medical conditions: Cancer Patient maximum height was 66 Menopause Age: 50 No regular weight bearing exercise Does not regularly consume dairy products Onset of menses at age 15 Number of children 2 Impression: The patient has low bone mass, based on the Right Femoral Neck T-score. The patient has risk factors, including: previous fracture. Discussion: INCREASED RISK OF FRACTURE DUE TO HISTORY OF FRACTURE. The patient's previous fracture puts the patient at high risk of a future fracture. In untreated patients, the risk of osteoporotic fracture increases approximately two-fold for each 1.0 SD decrease in T-score. Low bone density is not the only risk factor for fracture; also consider factors such as patient's age, frailty or poor health, risk of falling, risk of injury, previous osteoporotic fracture, family history of osteoporosis, cigarette smoking, low body weight, etc. Not everyone with a low trauma fracture has osteoporosis; osteomalacia and other metabolic bone disorders should also be considered. Patients who have osteoporosis should be evaluated for specific diseases and conditions (secondary causes) that may cause or contribute to bone loss and fracture risk. National Osteoporosis Foundation (NOF) recommends pharmacologic intervention for patients with a prior hip or vertebral fracture regardless of BMD T-score. The patient should follow a healthful lifestyle (good nutrition with adequate calcium and vitamin D, and appropriate weight-bearing exercise). Follow-Up: Consider a repeat BMD and Vertebral Fracture Assessment (VFA) exam in 2 years or sooner if medically necessary, to reassess this patient's status.
== END ==
PROVIDERS: PCP Physician Assistant; Visit Provider Physician Assistant
DX: Z78.0 Asymptomatic menopausal state (principal); M85.851 Other specified disorders of bone density and structure, right thigh
CPT/HCPCS: 77080

== ENCOUNTER 2024-01-11 10:10 | Outpatient (RCR) | payer MEDICARE, SELFPAY ==
--- NOTE | 2024-01-11 11:24 | PTOPEVAL1 ---
Assessment and note entered by Heidy Doran, PT, DPT Evaluation Information Assessment Status Evaluation Diagnosis R shoulder/arm pain Onset 6 months Subjective Information Pt states she is getting a lot of lateral arm pain that is tender to the touch. She states there is a knot she can feel as well. She reports this pain for the last 6 months. She states at times she will get pain that goes down to the elbow as well. She states pain limits her mobility. She is unable to sleep on her R side and will wake up if she rolls onto it. Reported Pain Level Pain Score 0: Self Report Assessment PT Clinical Summary Angelina presents to therapy today for her initial evaluation with a diagnosis of R shoulder pain. She demonstrates decreased active shoulder flexion on the R compared to the L, tenderness to palpation in her lateral arm, decreased shoulder strength jonathan, and forward and rounded posture. Pain and strength both limit her functional mobility. Skilled therapy services are indicated to address the deficits noted above, to manage pain, improve independence, and to return to PLOF. Plan of Care Interventions Electrical Stimulation,Hot Pack/Cold Pack,Manual Therapy,Neuro Re-education,Patient/Caregiver Educati,Therapeutic Activities,Therapeutic Exercise PT Services Indicated Yes Treatment Frequency and 2x/wk for 8 visits Duration These treatments will address the objective and functional deficits as defined above. The patient will be advanced safely and appropriately in order for the patient to progress towards his/her prior level of function. Additional exercises will be introduced and as well as a comprehensive home exercise program upon discharge, if needed, ?to ensure carryover of functional gains achieved in the clinic. This treatment plan has been reviewed and agreement upon by the patient.
--- NOTE | 2024-01-11 11:24 | OPREHPOC ---
Outpatient Therapy Plan of Care This is a Multidisciplinary Plan of Care that may contain components documented by all disciplines (PT, OT, and ST.) PT Problem 1 PT Problem #1 Knowledge Deficit PT Goal 1 Goal Pt to be IND with issued HEP. Target Visit 8 PT Problem 2 PT Problem #2 Pain PT Goal 1 Goal Pt to report no shoulder pain greater than 3/10 in the last week. Target Visit 8 PT Goal 2 Goal Pt to report 75% improvement in overall symptoms. Target Visit 8 PT Problem 3 PT Problem #3 Impaired Range of Motion PT Goal 1 Goal Pt to improve active shoulder flexion and abduction to 150 deg. Target Visit 8 PT Problem 4 PT Problem #4 Impaired Strength PT Goal 1 Goal Pt to improve jonathan shoulder strength to grossly 4/5 . Target Visit 8 PT Goal 2 Goal Pt to be able to lift 5lb over head.
--- NOTE | 2024-02-01 14:47 | PCPTNOTE ---
Patient called to cancel this date but did not state why. Therapist attempted to call patient back however went straight to voicemail.
--- NOTE | 2024-02-02 09:03 | PTOPDC ---
Assessment and note entered by Heidy Doran, PT, DPT Evaluation Information Assessment Status Discharge - Pt Not Present Diagnosis R shoulder/arm pain Onset 6 months Subjective Information Pt called and cancelled her remaining appointments . She states she has been too busy with work to commit to coming into therapy. She states she has been doing her exercises and is doing well. States she does not need additional therapy at this time . Assessment PT Clinical Summary Angelina was evaluated on 01/11/24 and did not complete any follow up treatments. She will be discharged at this time per her request.
== END 2024-02-02 09:25 | disposition home or self-care (01) ==
LOC: ANHGOSHPT 10:10
PROVIDERS: PCP Family Medicine; Visit Provider Family Medicine
DX: S46.019D Strain of muscle(s) and tendon(s) of the rotator cuff of unspecified shoulder, subsequent encounter (principal)
CPT/HCPCS: 97110; 97161